=== PATIENT | male | born 1965 | race African-American/Black ===

== ENCOUNTER 2018-02-09 11:08 | Emergency (ER) | payer BC ==
[~2018-02-09] VITALS: Ht 175.3 cm; Wt 77.1 kg
[2018-02-09] MEDS ORDERED: Solu-MEDROL 125mg Inj IVP ONE (11:30)
--- NOTE | 2018-02-09 11:31 | Emergency Room Report ---
History of Present Illness General Chief Complaint: Dizziness Source: Patient Present Illness HPI Patient presents with reports that last night approximate 10:30 After eating at a [place] restaurant he started having some allergic reaction sensation took 2 Benadryl's Patient had initially gotten up to walk to the restroom however reports a syncopal episode prior to that Currently denies any chest pain denies any back or flank pain He did sustain a laceration and injury to the top parietal area of the scalp There are Band-Aids in place Patient has some itching diffusely denies any difficulty swallowing Allergies: Coded Allergies: No Known Allergies (Unverified , 02/09/18) Patient History Past Medical History: see triage record Pertinent Family History: none Reviewed Nursing Documentation: PMH: Agreed; PSxH: Agreed Nursing Documentation-PMH Past Medical History: No Stated History Review of Systems All Other Systems: negative except mentioned in HPI Physical Exam Vital Signs Date Time Temp Pulse Resp B/P (MAP) Pulse Ox O2 Delivery O2 Flow Rate FiO2 02/09/18 11:10 97.9 88 17 126/78 98 Room Air Sp02 EP Interpretation: reviewed, normal General Appearance: no apparent distress Head: other - Small hematoma top parietal area midline associated 1-1/2 cm laceration Eyes: bilateral eye PERRL, bilateral eye EOMI ENT: hearing grossly normal, normal pharynx Neck: supple Respiratory: lungs clear Cardiovascular #1: regular rate, rhythm Gastrointestinal: non tender, soft Musculoskeletal: normal inspection Neurologic: alert, oriented x3, responsive Skin: other - As above Lymphatic: no adenopathy Procedures Laceration/Wound Repair Laceration/Wound Repair : Consent: Verbal Wound Location: head Wound's Depth, Shape: superficial Wound Length (cm): 1 Wound Explored: clean Wound Debrided: minimal Wound Repaired With: Dermabond Sling Applied?: Yes Patient Tolerated: Well Complications: None Progress The laceration on the top upper aspect of the scalp is secondarily healing with scab formation, Dermabond was placed on top of this for more appropriate approximation Medical Decision Making Diagnostic Impression: Primary Impression: Allergic reaction Additional Impression: Laceration ER Course Patient presents awake and alert and appropriate Has not had any vomiting or neurological deficits Does not meet criteria for acute emergency imaging Blood work are otherwise appropriate patient does not appear anemic The laceration was addressed as noted above Patient was treated for likely allergic reaction as well and will require close outpatient follow-up Labs Test 02/09/18 11:25 White Blood Count 5.4 K/UL (4.8-10.8) Red Blood Count 5.41 M/UL (4.70-6.10) Hemoglobin 15.5 G/DL (14.2-18.0) Hematocrit 47.3 % (42.0-52.0) Mean Corpuscular Volume 87 FL (80-99) Mean Corpuscular Hemoglobin 28.6 PG (27.0-31.0) Mean Corpuscular Hemoglobin Concent 32.8 G/DL (32.0-36.0) Red Cell Distribution Width 12.7 % (11.6-14.8) Platelet Count 295 K/UL (150-450) Mean Platelet Volume 6.1 FL (6.5-10.1) Neutrophils (%) (Auto) 60.9 % (45.0-75.0) Lymphocytes (%) (Auto) 33.1 % (20.0-45.0) Monocytes (%) (Auto) 4.3 % (1.0-10.0) Eosinophils (%) (Auto) 0.9 % (0.0-3.0) Basophils (%) (Auto) 0.8 % (0.0-2.0) Sodium Level 139 MMOL/L (136-145) Potassium Level 3.8 MMOL/L (3.5-5.1) Chloride Level 104 MMOL/L (98-107) Carbon Dioxide Level 26 MMOL/L (21-32) Anion Gap 9 mmol/L (5-15) Blood Urea Nitrogen 10 mg/dL (7-18) Creatinine 1.3 MG/DL (0.55-1.30) Estimat Glomerular Filtration Rate > 60 mL/min (>60) Glucose Level 107 MG/DL (74-106) Calcium Level 8.6 MG/DL (8.5-10.1) Rhythm Strip Diag. Results EP Interpretation: yes Rate: 66 Rhythm: NSR, no PVC's, no ectopy Last Vital Signs Date Time Temp Pulse Resp B/P (MAP) Pulse Ox O2 Delivery O2 Flow Rate FiO2 02/09/18 11:10 97.9 88 17 126/78 98 Room Air Status: improved Disposition: HOME, SELF-CARE Condition: Improved Scripts Diphenhydramine Hcl* (BENADRYL*) 25 Mg Capsule 25 MG ORAL Q6H PRN for Itching for 7 Days, CAP Prov: Brianne Wisdom DO 02/09/18 Methylprednisolone (Methylprednisolone*) 4MG Dspk 4 MG ORAL DIRECTED for 6 Days, #21 EA 0 Refills Day 1: Two tablets before breakfast, one after lunch, one after dinner, and two at bedtime. If started late in the day, take all six tablets at once or divide into two or three doses, unless otherwise directed by prescriber. Day 2: One tablet before breakfast, one after lunch, one after dinner, and two at bedtime Day 3: One tablet before breakfast, one after lunch, one after dinner, and one at bedtime Day 4: One tablet before breakfast, one after lunch, and one at bedtime Day 5: One tablet before breakfast and one at bedtime Day 6: One tablet before breakfast Prov: Brianne Wisdom DO 02/09/18 Additional Instructions: Patient is provided with the discharge instructions notified to follow up with primary doctor in the next 2-3 days otherwise return to the er with any worsening symptoms. Please note that this report is being documented using [employer] technology. This can lead to erroneous entry secondary to incorrect interpretation by the dictating instrument. Brianne Wisdom DO Feb 09, 2018 11:31
[2018-02-09 11:48] VITALS: BP 141/74
[2018-02-09 11:58] LABS: BASOPHILS % (AUTO) 0.8 % (0.0-2.0); EOSINOPHILS % (AUTO) 0.9 % (0.0-3.0); HEMATOCRIT 47.3 % (42.0-52.0); HEMOGLOBIN 15.5 G/DL (14.2-18.0); LYMPHOCYTES % (AUTO) 33.1 % (20.0-45.0); MEAN CORPUSCULAR VOLUME 87 FL (80-99); MONOCYTES % (AUTO) 4.3 % (1.0-10.0); NEUTROPHILS % (AUTO) 60.9 % (45.0-75.0); PLATELET COUNT 295 K/UL (150-450); RED BLOOD COUNT 5.41 M/UL (4.70-6.10); RED CELL DISTRIBUTION WIDTH 12.7 % (11.6-14.8); WHITE BLOOD COUNT 5.4 K/UL (4.8-10.8)
[2018-02-09 12:10] LABS: ANION GAP 9 mmol/L (5-15); BLOOD UREA NITROGEN 10 mg/dL (7-18); CALCIUM 8.6 MG/DL (8.5-10.1); CARBON DIOXIDE 26 MMOL/L (21-32); CHLORIDE 104 MMOL/L (98-107); CREATININE 1.3 MG/DL (0.55-1.30); POTASSIUM 3.8 MMOL/L (3.5-5.1); SODIUM 139 MMOL/L (136-145)
[2018-02-09] MEDS ORDERED: MEDROL DOSEPAK4 MG ORAL (12:48)
[2018-02-09] MEDS ORDERED: BENADRYL25 MG ORAL (12:48)
[2018-02-09 12:54] VITALS: BP 133/83
== END 2018-02-09 12:55 | disposition home or self-care (01) ==
LOC: EMR 11:31
DX: T78.40XA Allergy, unspecified, initial encounter (principal); X58.XXXA Exposure to other specified factors, initial encounter; S01.01XA Laceration without foreign body of scalp, initial encounter
CPT/HCPCS: 12001; 36415; 80048; 85025; 96374; 96375; 99284; J2930; S0028